=== PATIENT | male | born 1945 | race Caucasian/White ===

== ENCOUNTER 2016-07-12 00:41 | Emergency (ER) | payer MEDICARE, BC ==
--- NOTE | 2016-07-12 00:52 | EDM.PDOC ---
ED HISTORY OF PRESENT ILLNESS - General Chief Complaint: Chest Pain Stated Complaint: L)sided chest pain Time Seen by Provider: 07/12/16 00:25 Source of Information: Reports: Patient History Limitations: Reports: No limitations - History of Present Illness INITIAL COMMENTS - FREE TEXT/NARRATIVE: History of present illness: [70-year-old male presenting with complaints of chest pain starting at approximately noon on 07/11, but preceded to go about his stay he indicated he had taken baby aspirin as well as some nitroglycerin has he had from before. Patient has had a stent placed in his coronary artery last August which is approximately 8-9 months ago as well as a gallbladder procedure in March of 2016.] Review of systems: As per history of present illness and below otherwise all systems reviewed and negative. Past medical history: As per history of present illness and as reviewed below otherwise noncontributory. Surgical history: As per history of present illness and as reviewed below otherwise noncontributory. Social history: No reported history of drug or alcohol abuse. Family history: As per history of present illness and as reviewed below otherwise noncontributory. Physical exam: HEENT: Atraumatic, normocephalic, pupils reactive, negative for conjunctival pallor or scleral icterus, mucous membranes moist, throat clear, neck supple, nontender, trachea midline. Lungs: Clear to auscultation, breath sounds equal bilaterally, chest nontender. Heart: S1S2, regular, negative for clicks, rubs, or JVD. Abdomen: Soft, nondistended, nontender. Negative for masses or hepatosplenomegaly. Negative for costovertebral tenderness. Pelvis: Stable nontender. Genitourinary: Deferred. Rectal: Deferred. Extremities: Atraumatic, negative for cords or calf pain. Neurovascular unremarkable. Neuro: Awake, alert, oriented. Cranial nerves II through XII unremarkable. Cerebellum unremarkable. Motor and sensory unremarkable throughout. Exam nonfocal. Patient very gassy and belching quite a bit indicates that he feels that the bubble in his stomach and now he states that it actually is painful only on deep inspiration and is reproducible with deep inspiration and that he perceives some measure of relief upon expressing gas via belching Diagnostics: [CMP, CBC, troponin, CK, LDH, EKG, chest x-ray] Therapeutics: [Patient had taken aspirin prior to arrival as well as nitroglycerin tablets, GI cocktail] Impression: [Atypical chest] Plan: [Followup with primary care provider] Definitive disposition and diagnosis as appropriate pending reevaluation and review of above. - Related Data Allergies/ADRs: Allergies Allergy/AdvReac Type Severity Reaction Status Date / Time hydrocodone bitartrate Allergy Cannot Verified 06/01/16 16:08 [From Vicodin] Remember Penicillins Allergy Cannot Verified 06/01/16 16:08 Remember sun Allergy Cannot Uncoded 06/01/16 16:08 Remember Home Meds: Home Meds Aspirin [Adult Low Dose Aspirin EC] 81 mg PO DAILY 06/21/15 [History] Gabapentin [Neurontin] 300 mg PO BID 06/21/15 [History] Garlic 1,000 mg PO BID 06/21/15 [History] Naproxen Sodium [Aleve] 220 mg PO BID PRN 06/21/15 [History] atorvaSTATin [Lipitor] 10 mg PO DAILY 10/13/15 [History] Lansoprazole [Prevacid] 15 mg PO BIDAC 07/12/16 [History] Metoprolol Tartrate [Metoprolol Tartrate] 25 mg PO BID 07/12/16 [History] Nitroglycerin 0.4 mg SL ASDIRECTED PRN 07/12/16 [History] Past Medical History HEENT History: Reports: Other (see below) Other HEENT History: corneal abrasion Cardiovascular History: Reports: High cholesterol, Hypertension, Stents Other Cardiovascular History: thought he had heartburn, saw cardiology, prescribed meds; still had heartburn, stress test done. Respiratory History: Reports: Other (see below) Other Respiratory History: has albuterol on med list; says he uses occasionally , not sure why Gastrointestinal History: Reports: GERD Musculoskeletal History: Reports: Back pain, chronic, Osteoarthritis Other Musculoskeletal History: has a history of chronic back pain Dermatologic History: Reports: Other (see below) Other Dermatologic History: states he is allergic to the sun; breaks out with sun exposure - Past Surgical History Other Cardiovascular Surgeries/Procedures: denies any cp since PTCA Stent, denies any palpitations since procedure; had some dizziness in shower for a few seconds recently; heart cath through wrist, healed; GI Surgical History: Reports: Cholecystectomy, Hernia, inguinal, Other (see below) Other GI Surgeries/Procedures: abdominal wall surgery. reflux Musculoskeletal Surgical History: Reports: Amputation Other Musculoskeletal Surgeries/Procedures:: right middle tip of finger amputated, no fingernail. right pointer finger crooked from same accident. Social & Family History - Tobacco Use Smoking Status *Q: Former Smoker Used Tobacco, but Quit: Yes Month Tobacco Last Used: 4 years ago - Caffeine Use Caffeine Use: Reports: Coffee - Recreational Drug Use Recreational Drug Use: No ED ROS GENERAL - Review of Systems Review Of Systems: See Below (See history of present illness) ED EXAM, GENERAL - Physical Exam Exam: See Below (See history of present illness) Course - Vital Signs Last Recorded V/S: Last Vital Signs Temp 36.8 C 07/12/16 01:26 Pulse 58 L 07/12/16 01:26 Resp 18 07/12/16 01:26 BP 129/73 07/12/16 01:26 Pulse Ox 96 07/12/16 01:26 - Orders/Labs/Meds Orders: Active Orders 24 hr Category Date Time Status EKG Documentation Completion [RC] STAT Care 07/12/16 00:52 Active Chest 2V [CR] Stat Exams 07/12/16 00:52 Taken Labs: Laboratory Tests 07/12/16 07/12/16 07/12/16 Range/Units 01:13 01:13 01:13 WBC 5.5 (5.0-10.0) 10^3/uL RBC 4.43 L (4.50-6.00) 10^6/uL Hgb 13.9 L (14.0-18.0) g/dL Hct 41.9 (40.0-54.0) % MCV 94.6 H (82.0-94.0) fL MCH 31.4 (27.0-32.0) pg MCHC 33.2 (33.0-38.0) g/dL RDW Coeff of [place] 12.8 (11.0-15.0) % Plt Count 143 L (150-400) 10^3/uL Neut % (Auto) 69.6 (35-85) % Lymph % (Auto) 21.0 (10-55) % Emm[place] % (Auto) 8.3 (0-16) % Eos % (Auto) 0.9 (0-5) % Baso % (Auto) 0.2 (0-3) % Neut # 3.85 (1.80-7.00) 10^3/uL Lymph # 1.16 (1.00-4.80) 10^3/uL Emmet # 0.46 (0.00-0.80) 10^3/uL Eos # 0.05 (0.00-0.45) 10^3/uL Baso # 0.01 10^3/uL PT 11.4 (9.7-12.3) SEC INR 1.05 (0.92-1.18) Sodium 139 (136-145) mEq/L Potassium 3.8 (3.5-5.0) mEq/L Chloride 104 (98-106) mEq/L Carbon Dioxide 27 (21-32) mmol/L BUN 22 H (7-18) mg/dL Creatinine 1.0 (0.7-1.3) mg/dL Est Cr Clr Drug Dosing 71.99 mL/min Estimated GFR (MDRD) > 60 (>=60) mL/min Glucose 112 H (75-99) mg/dL Calcium 8.4 (8.4-10.1) mg/dL Total Bilirubin 0.5 (0.0-1.0) mg/dL AST 14 L (15-37) U/L ALT 21 (12-78) U/L Alkaline Phosphatase 74 (46-116) U/L Lactate Dehydrogenase 173 (100-190) U/L Creatine Kinase 135 (35-232) U/L Troponin I < 0.017 (0.00-0.06) ng/mL Total Protein 7.3 (6.4-8.2) g/dL Albumin 3.7 (3.4-5.0) g/dL Meds: Medications Discontinued Medications Generic Name Dose Route Start Last Admin Trade Name Freq PRN Reason Stop Dose Admin Al Hydroxide/Mg Hydroxide 30 0 ml 07/12/16 01:44 07/12/16 01:47 ml/ Lidocaine HCl 15 ml PO 07/12/16 01:45 45 ml ONETIME ONE Administration Departure - Departure Time of Disposition: 02:03 Disposition: Home, Self-Care 01 Condition: good Clinical Impression: Atypical chest pain Instructions: Nonspecific Chest Pain, [id number] Forms: ED Department Discharge Additional Instructions: The following information is given to patients seen in the emergency department who are being discharged to home. This information is to outline your options for follow-up care. We provide all patients seen in our emergency department with a follow-up referral. The need for follow-up, as well as the timing and circumstances, are variable depending upon the specifics of your emergency department visit. If you don't have a primary care physician on staff, we will provide you with a referral. We always advise you to contact your personal physician following an emergency department visit to inform them of the circumstance of the visit and for follow-up with them and/or the need for any referrals to a consulting specialist. The emergency department will also refer you to a specialist when appropriate. This referral assures that you have the opportunity for follow-up care with a specialist. All of these measure are taken in an effort to provide you with optimal care, which includes your follow-up. Under all circumstances we always encourage you to contact your private physician who remains a resource for coordinating your care. When calling for follow-up care, please make the office aware that this follow-up is from your recent emergency room visit. If for any reason you are refused follow-up, please contact the [facility] Emergency Department at and asked to speak to the emergency department charge nurse. Followup with your primary care provider one to 2 days Followup with the GI doctor to discuss the continued gastrointestinal complaints that you've been having Return to ED as needed as discussed - My Orders Last 24 Hours: My Active Orders 07/12/16 00:52 EKG Documentation Completion [RC] STAT Chest 2V [CR] Stat - Assessment/Plan Last 24 Hours: My Active Orders 07/12/16 00:52 EKG Documentation Completion [RC] STAT Chest 2V [CR] Stat
[2016-07-12 01:26] VITALS: BP 129/73
[2016-07-12 01:29] LABS: CHLORIDE,CL 104 mEq/L (98-106); SODIUM,NA 139 mEq/L (136-145)
[2016-07-12] MEDS ORDERED: Alum Hydrox/Mag Hydrox/Simeth 30 ML, Lidocaine 2% 15 ML PO ONE ×2 (01:44)
== END 2016-07-12 02:15 | disposition home or self-care (01) ==
LOC: CC.ED 00:41
DX: R07.89 Other chest pain (principal); Z88.0 Allergy status to penicillin; Z79.899 Other long term (current) drug therapy; Z87.891 Personal history of nicotine dependence
CPT/HCPCS: 36415; 71020; 80053; 82550; 83615; 84484; 85025; 85610; 93005; 99285; A9270; 93010

== ENCOUNTER 2017-05-09 10:24 | Observation (INO) | payer MEDICARE, BC ==
[2017-05-09] MEDS ORDERED: Albuterol/Ipratropium 3.0-0.5 MG/3 ML Neb Soln NEB ONE (10:55)
[2017-05-09 10:59] LABS: CHLORIDE,CL 99 mEq/L (98-106); SODIUM,NA 136 mEq/L (136-145)
[2017-05-09] MEDS ORDERED: Albuterol/Ipratropium 3.0-0.5 MG/3 ML Neb Soln INH ONE (11:30)
[2017-05-09] MEDS ORDERED: Sodium Chloride 0.9% 10 ML Syringe FLUSH PRN (14:47)
[2017-05-09] MEDS ORDERED: Temazepam 15 MG Cap PO PRN (14:47)
[2017-05-09] MEDS ORDERED: Docusate Sodium 100 MG Cap PO PRN (14:47)
[2017-05-09] MEDS ORDERED: Acetaminophen 325 MG Tab PO PRN (14:47)
[2017-05-09] MEDS ORDERED: Nitroglycerin 0.4 MG Tab.SL SL PRN (14:50)
[2017-05-09] MEDS ORDERED: methylPREDNISolone Sodium Succinate 125 MG/2 ML SDV IVPUSH SCH (15:00)
[2017-05-09] MEDS ORDERED: methylPREDNISolone Sodium Succinate 125 MG/2 ML SDV IVPUSH ONE (15:00)
[2017-05-09] MEDS ORDERED: Codeine/Promethazine 10-6.25 MG/5 ML Syrup 5 ML UD Cup PO PRN ×2 (15:04→15:20)
[2017-05-09] MEDS: Enoxaparin 30 MG/0.3 ML Syringe SUBCUT SCH (15:29)
[2017-05-09] MEDS: cefTRIAXone 1 GM Vial IVPUSH SCH (15:29)
[2017-05-09] MEDS: Albuterol/Ipratropium 3.0-0.5 MG/3 ML Neb Soln NEB SCH ×2 (15:31→19:43)
[2017-05-09] MEDS: Pantoprazole 40 MG Tab.CR PO SCH (17:10)
[2017-05-09] MEDS: ATORVASTATIN 10 MG PO SCH (19:37)
[2017-05-09] MEDS: Metoprolol Tartrate 25 MG Tab ** OWN MED PO SCH (19:37)
[2017-05-09] MEDS: POTASSIUM GLUCONATE 99 MG PO SCH (19:38)
[2017-05-09] MEDS: Gabapentin 300 MG Cap ** OWN MED PO SCH (19:38)
[2017-05-09] MEDS: [UNRECOGNIZED DRUG - OTHER] PO PRN (19:39)
[2017-05-09] MEDS ORDERED: Gabapentin 300 MG Cap PO SCH (20:00)
[2017-05-09] MEDS ORDERED: atorvaSTATin 10 MG Tab PO SCH (20:00)
[2017-05-10] MEDS: Albuterol/Ipratropium 3.0-0.5 MG/3 ML Neb Soln NEB SCH ×4 (07:53→19:23)
[2017-05-10] MEDS: methylPREDNISolone Sodium Succinate 125 MG/2 ML SDV IVPUSH SCH ×2 (07:54→19:27)
[2017-05-10] MEDS: Pantoprazole 40 MG Tab.CR PO SCH ×2 (07:54→16:21)
[2017-05-10] MEDS: Metoprolol Tartrate 25 MG Tab ** OWN MED PO SCH ×2 (07:55→19:21)
[2017-05-10] MEDS: Gabapentin 300 MG Cap ** OWN MED PO SCH ×3 (07:56→19:22)
[2017-05-10] MEDS: Aspirin 81 MG Tab.EC PO SCH (07:56)
[2017-05-10 07:57] LABS: CHLORIDE,CL 102 mEq/L (98-106); SODIUM,NA 139 mEq/L (136-145)
[2017-05-10] MEDS: [UNRECOGNIZED DRUG - OTHER] PO PRN (07:57)
[2017-05-10] MEDS ORDERED: atorvaSTATin 10 MG Tab PO SCH (08:00)
[2017-05-10] MEDS: Enoxaparin 30 MG/0.3 ML Syringe SUBCUT SCH (16:14)
[2017-05-10] MEDS: cefTRIAXone 1 GM Vial IVPUSH SCH (16:14)
[2017-05-10] MEDS: ATORVASTATIN 10 MG PO SCH (19:21)
[2017-05-10] MEDS: POTASSIUM GLUCONATE 99 MG PO SCH (19:22)
--- NOTE | 2017-05-10 19:40 | PCM.PN ---
- General Info Date of Service: 05/10/17 Admission Dx/Problem (Free Text): Bronchitis Functional Status: Reports: Pain Controlled, Tolerating Diet, Ambulating - Review of Systems General: Denies: Fever, Weakness, Fatigue HEENT: Reports: Sinus Congestion, Rhinitis. Denies: Sore Throat Pulmonary: Reports: Shortness of Breath, Cough, Wheezing. Denies: Sputum Cardiovascular: Denies: Chest Pain, Lightheadedness Gastrointestinal: Denies: Abdominal Pain, Nausea, Vomiting Genitourinary: Reports: No Symptoms Musculoskeletal: Reports: No Symptoms Skin: Reports: No Symptoms Neurological: Reports: No Symptoms, Difficulty Walking - Patient Data Vitals - Most Recent: Last Vital Signs Temp 97.9 F 05/10/17 16:00 Pulse 65 05/10/17 19:21 Resp 18 05/10/17 16:00 BP 139/67 05/10/17 19:21 Pulse Ox 98 05/10/17 16:00 Weight - Most Recent: 296 lb 8.348 oz Lab Results Last 24 Hours: Laboratory Results - last 24 hr 05/10/17 05/10/17 Range/Units 07:00 07:00 WBC 4.4 L (5.0-10.0) 10^3/uL RBC 4.45 L (4.50-6.00) 10^6/uL Hgb 14.0 (14.0-18.0) g/dL Hct 41.7 (40.0-54.0) % MCV 93.7 (82.0-94.0) fL MCH 31.5 (27.0-32.0) pg MCHC 33.6 (33.0-38.0) g/dL RDW Coeff of Lynn 12.5 (11.0-15.0) % Plt Count 157 (150-400) 10^3/uL Neut % (Auto) 66.3 (35-85) % Lymph % (Auto) 23.9 (10-55) % [place] % (Auto) 9.8 (0-16) % Eos % (Auto) 0 (0-5) % Baso % (Auto) 0 (0-3) % Neut # (Auto) 2.92 (1.80-7.00) 10^3/uL Lymph # (Auto) 1.05 (1.00-4.80) 10^3/uL [place] # (Auto) 0.43 (0.00-0.80) 10^3/uL Eos # (Auto) 0.00 (0.00-0.45) 10^3/uL Baso # (Auto) 0.00 10^3/uL Sodium 139 (136-145) mEq/L Potassium 4.7 (3.5-5.0) mEq/L Chloride 102 (98-106) mEq/L Carbon Dioxide 28 (21-32) mmol/L BUN 13 (7-18) mg/dL Creatinine 1.1 (0.7-1.3) mg/dL Est Cr Clr Drug Dosing 64.52 mL/min Estimated GFR (MDRD) > 60 (>=60) mL/min Glucose 122 H (75-99) mg/dL Calcium 8.8 (8.4-10.1) mg/dL C-Reactive Protein 0.2 (0.2-0.8) mg/dL Med Orders - Current: Current Medications Acetaminophen (Tylenol) 650 mg PO Q4H PRN PRN Reason: Pain (Mild 1-3)/fever Albuterol/Ipratropium (Duoneb 3.0-0.5 Mg/3 Ml) 3 ml NEB QIDRT [facility] Last Admin: 05/10/17 19:23 Dose: 3 ml Aspirin (Halfprin) 81 mg PO DAILY [facility] Last Admin: 05/10/17 07:56 Dose: 81 mg Atorvastatin Calcium (Lipitor) 10 mg PO BEDTIME [facility] Last Admin: 05/10/17 19:21 Dose: 10 mg Ceftriaxone Sodium (Rocephin) 1 gm IVPUSH Q24H [facility] Last Admin: 05/10/17 16:14 Dose: 1 gm Docusate Sodium (Colace) 100 mg PO BID PRN PRN Reason: Constipation Enoxaparin Sodium (Lovenox) 30 mg SUBCUT Q24H [facility] Last Admin: 05/10/17 16:14 Dose: 30 mg Gabapentin (Neurontin) 300 mg PO TID [facility] Last Admin: 05/10/17 19:22 Dose: 300 mg Methylprednisolone Sodium Succinate (Solu-Medrol) 62.5 mg IVPUSH Q12H [facility] Last Admin: 05/10/17 19:27 Dose: 62.5 mg Metoprolol Tartrate (Lopressor) 25 mg PO BID [facility] Last Admin: 05/10/17 19:21 Dose: 25 mg Nitroglycerin (Nitrostat) 0.4 mg SL ASDIRECTED PRN PRN Reason: Chest Pain Mg Trisilicate/Alh/Nahco3/Aa [Gaviscon 80-14.2 Mg] 1 Tab Own Med 1 tab PO TID PRN PRN Reason: Dyspepsia Last Admin: 05/10/17 07:57 Dose: 1 tab Potassium Gluconate (99mg Own Med ) 99 mg PO BEDTIME [facility] Last Admin: 05/10/17 19:22 Dose: 99 mg Pantoprazole Sodium (Protonix) 40 mg PO BIDAC [facility] Last Admin: 05/10/17 16:21 Dose: 40 mg Promethazine HCl/Codeine (Phenergan With Codeine) 5 - 10 ml PO Q4H PRN PRN Reason: Cough Last Admin: 05/09/17 21:08 Dose: 10 ml Sodium Chloride (Saline Flush) 10 ml FLUSH ASDIRECTED PRN PRN Reason: Keep Vein Open Temazepam (Restoril) 15 mg PO BEDTIME PRN PRN Reason: Sleep Discontinued Medications Albuterol/Ipratropium (Duoneb 3.0-0.5 Mg/3 Ml) 3 ml INH ONETIME ONE Stop: 05/09/17 11:31 Last Admin: 05/09/17 11:27 Dose: 3 ml Albuterol/Ipratropium (Duoneb 3.0-0.5 Mg/3 Ml) 3 ml NEB ONETIME ONE Stop: 05/09/17 10:56 Last Admin: 05/09/17 11:14 Dose: Not Given Atorvastatin Calcium (Lipitor) 25 mg PO DAILY [facility] Atorvastatin Calcium (Lipitor) 25 mg PO BEDTIME [facility] Gabapentin (Neurontin) 300 mg PO BID [facility] Methylprednisolone Sodium Succinate (Solu-Medrol) 62.5 mg IVPUSH Q12H [facility] Methylprednisolone Sodium Succinate (Solu-Medrol) 62.5 mg IVPUSH NOW ONE Stop: 05/09/17 15:01 Last Admin: 05/09/17 15:29 Dose: 62.5 mg Promethazine HCl/Codeine (Phenergan With Codeine) 5 ml PO Q4H PRN PRN Reason: Cough - Exam General: Alert, Oriented HEENT: Mucous Membr. Moist/[place] Neck: Supple Lungs: Decreased Breath Sounds, Wheezing (fine) Cardiovascular: Regular Rate, Regular Rhythm GI/Abdominal Exam: Normal Bowel Sounds, Soft, Non-Tender Back Exam: Normal Inspection Extremities: Normal Inspection, No Pedal Edema Skin: Warm, Dry Neurological: No New Focal Deficit - Problem List & Annotations (1) Bronchitis SNOMED Code(s): 48393906 Code(s): J40 - BRONCHITIS, NOT SPECIFIED ACUTE OR CHRONIC Status: Acute Priority: High Current Visit: Yes - Problem List Review Problem List Initiated/Reviewed/Updated: Yes - Assessment Assessment:: Bronchitis - Plan Plan:: Patient doing well today. States has much better air movement, less shortness of breath. Lung sounds diminished, fine wheezing noted. Admits to frequent cough, nonproductive. Afebrile. Labs show WBC 4.4, CRP 0.2. Continue IV antibiotics, nebs, steroids. Encourage ambulation. Probable discharge home tomorrow.
[2017-05-11] MEDS: Pantoprazole 40 MG Tab.CR PO SCH (06:33)
[2017-05-11] MEDS: Gabapentin 300 MG Cap ** OWN MED PO SCH (08:23)
[2017-05-11 08:24] VITALS: BP 131/65
[2017-05-11] MEDS: Metoprolol Tartrate 25 MG Tab ** OWN MED PO SCH (08:24)
[2017-05-11] MEDS: Aspirin 81 MG Tab.EC PO SCH (08:26)
[2017-05-11] MEDS: Albuterol/Ipratropium 3.0-0.5 MG/3 ML Neb Soln NEB SCH (08:32)
[2017-05-11] MEDS: methylPREDNISolone Sodium Succinate 125 MG/2 ML SDV IVPUSH SCH (08:32)
--- NOTE | 2017-05-11 14:40 | PCM.DCSUM1 ---
Discharge Summary - Hospital Course Free Text/Narrative:: Patient admitted by Deepak Perea by bronchitis. Patient had previously been treated with antibiotics and steroids but felt his symptoms had progressed. On presentation, patient was short of breath and wheezy. [place] very weak. Admitted for IV antibiotics and steroids, nebulizer treatments. Initial labs on admit show low WBC, negative CRP. Chest xray clear. - Discharge Data Discharge Date: 05/11/17 Discharge Disposition: Home, Self-Care 01 Condition: Good - Discharge Diagnosis/Problem(s) (1) Bronchitis SNOMED Code(s): 94812467 ICD Code: J40 - BRONCHITIS, NOT SPECIFIED ACUTE OR CHRONIC Status: Acute Priority: High - Patient Summary/Data Complications: none Hospital Course: Patient has had good response to IV steroids and nebulizers. Is up and ambulating without difficulty, mild shortness of breath with this. He is afebrile. Lung sounds are clear today with good air exchange. Labs have remained stable. Appetite has been good. Return home on Doxycycline and nebulizer treatments as well as prednisone for the next 5 days. - Patient Instructions Diet: Usual Diet as Tolerated Activity: As Tolerated - Discharge Plan Prescriptions/Med Rec: Doxycycline [Vibramycin] 100 mg PO Q12HR #14 tablet Albuterol/Ipratropium [DuoNeb 3.0-0.5 MG/3 ML] [address] [facility] QIDRT #28 neb predniSONE [Prednisone] 20 mg PO DAILY #5 tablet Home Medications: Home Meds Aspirin [Adult Low Dose Aspirin EC] 81 mg PO DAILY 06/21/15 [History] Gabapentin [Neurontin] 300 mg PO TID 06/21/15 [History] Garlic 1,000 mg PO BID 06/21/15 [History] Naproxen Sodium [Aleve] 220 mg PO BID PRN 06/21/15 [History] atorvaSTATin [Lipitor] 10 mg PO BEDTIME 10/13/15 [History] Lansoprazole [Prevacid] 15 mg PO BIDAC 07/12/16 [History] Metoprolol Tartrate 25 mg PO BID 07/12/16 [History] Nitroglycerin 0.4 mg SL ASDIRECTED PRN 07/12/16 [History] Mg Trisilicate/AlH/NahCO3/AA [Gaviscon 80-14.2 MG] 1 tab PO TID PRN 05/09/17 [ History] Potassium 99 mg PO BEDTIME 05/09/17 [History] Promethazine HCl/Codeine [Prometh-Codein 6.25-10 mg/5 ml] 5 ml PO Q4H PRN [History] Albuterol/Ipratropium [DuoNeb 3.0-0.5 MG/3 ML] 3 ml NEB QIDRT #28 neb 05/11/17 [ Rx] Doxycycline [Vibramycin] 100 mg PO Q12HR #14 tablet 05/11/17 [Rx] predniSONE [Prednisone] 20 mg PO DAILY #5 tablet 05/11/17 [Rx] Patient Handouts: Acute Bronchitis Referrals: Alex Logan MD [Primary Care Provider] - (See Dr. Logan next week in clinic) - Discharge Summary/Plan Comment DC Time >30 min.: No Discharge Summary/Plan Comment: Discharge home on Doxycycline, prednisone and nebs. Follow up with Dr. Logan next week for hospital recheck. - General Info Date of Service: 05/11/17 Admission Dx/Problem (Free Text: Bronchitis Functional Status: Reports: Pain Controlled, Tolerating Diet, Ambulating - Review of Systems General: Denies: Fever, Weakness, Fatigue HEENT: Reports: Sinus Congestion, Rhinitis Pulmonary: Reports: Cough, Sputum. Denies: Shortness of Breath, Wheezing Cardiovascular: Reports: No Symptoms Gastrointestinal: Reports: No Symptoms Genitourinary: Reports: No Symptoms Musculoskeletal: Reports: No Symptoms - Patient Data Vitals - Most Recent: Last Vital Signs Temp 98.7 F 05/11/17 08:00 Pulse 63 05/11/17 08:24 Resp 19 05/11/17 08:00 BP 131/65 05/11/17 08:24 Pulse Ox 94 L 05/11/17 08:00 Weight - Most Recent: 296 lb 8.348 oz Med Orders - Current: Current Medications Discontinued Medications Acetaminophen (Tylenol) 650 mg PO Q4H PRN PRN Reason: Pain (Mild 1-3)/fever Albuterol/Ipratropium (Duoneb 3.0-0.5 Mg/3 Ml) 3 ml INH ONETIME ONE Stop: 05/09/17 11:31 Last Admin: 05/09/17 11:27 Dose: 3 ml Albuterol/Ipratropium (Duoneb 3.0-0.5 Mg/3 Ml) 3 ml NEB ONETIME ONE Stop: 05/09/17 10:56 Last Admin: 05/09/17 11:14 Dose: Not Given Albuterol/Ipratropium (Duoneb 3.0-0.5 Mg/3 Ml) 3 ml NEB QIDRT [facility] Last Admin: 05/11/17 08:32 Dose: 3 ml Aspirin (Halfprin) 81 mg PO DAILY [facility] Last Admin: 05/11/17 08:26 Dose: 81 mg Atorvastatin Calcium (Lipitor) 25 mg PO DAILY [facility] Atorvastatin Calcium (Lipitor) 25 mg PO BEDTIME [facility] Atorvastatin Calcium (Lipitor) 10 mg PO BEDTIME [facility] Last Admin: 05/10/17 19:21 Dose: 10 mg Ceftriaxone Sodium (Rocephin) 1 gm IVPUSH Q24H [facility] Last Admin: 05/10/17 16:14 Dose: 1 gm Docusate Sodium (Colace) 100 mg PO BID PRN PRN Reason: Constipation Enoxaparin Sodium (Lovenox) 30 mg SUBCUT Q24H [facility] Last Admin: 05/10/17 16:14 Dose: 30 mg Gabapentin (Neurontin) 300 mg PO BID [facility] Gabapentin (Neurontin) 300 mg PO TID [facility] Last Admin: 05/11/17 08:23 Dose: 300 mg Methylprednisolone Sodium Succinate (Solu-Medrol) 62.5 mg IVPUSH Q12H [facility] Methylprednisolone Sodium Succinate (Solu-Medrol) 62.5 mg IVPUSH NOW ONE Stop: 05/09/17 15:01 Last Admin: 05/09/17 15:29 Dose: 62.5 mg Methylprednisolone Sodium Succinate (Solu-Medrol) 62.5 mg IVPUSH Q12H [facility] Last Admin: 05/11/17 08:32 Dose: 62.5 mg Metoprolol Tartrate (Lopressor) 25 mg PO BID [facility] Last Admin: 05/11/17 08:24 Dose: 25 mg Nitroglycerin (Nitrostat) 0.4 mg SL ASDIRECTED PRN PRN Reason: Chest Pain Mg Trisilicate/Alh/Nahco3/Aa [Gaviscon 80-14.2 Mg] 1 Tab Own Med 1 tab PO TID PRN PRN Reason: Dyspepsia Last Admin: 05/10/17 07:57 Dose: 1 tab Potassium Gluconate (99mg Own Med ) 99 mg PO BEDTIME [facility] Last Admin: 05/10/17 19:22 Dose: 99 mg Pantoprazole Sodium (Protonix) 40 mg PO BIDAC [facility] Last Admin: 05/11/17 06:33 Dose: 40 mg Promethazine HCl/Codeine (Phenergan With Codeine) 5 ml PO Q4H PRN PRN Reason: Cough Promethazine HCl/Codeine (Phenergan With Codeine) 5 - 10 ml PO Q4H PRN PRN Reason: Cough Last Admin: 05/09/17 21:08 Dose: 10 ml Sodium Chloride (Saline Flush) 10 ml FLUSH ASDIRECTED PRN PRN Reason: Keep Vein Open Temazepam (Restoril) 15 mg PO BEDTIME PRN PRN Reason: Sleep - Exam General: Reports: Alert, Oriented HEENT: Reports: Mucous Membr. Moist/[place] Neck: Reports: Supple Lungs: Reports: Decreased Breath Sounds Cardiovascular: Reports: Regular Rate, Regular Rhythm GI/Abdominal Exam: Normal Bowel Sounds, Soft, Non-Tender Skin: Reports: Warm, Dry Neurological: Reports: No New Focal Deficit *Q Meaningful Use (DIS) - VTE *Q VTE Criteria *Q: - Stroke *Q Stroke Criteria *Q: - AMI *Q AMI Criteria *Q:
== END 2017-05-11 10:30 | disposition home or self-care (01) ==
LOC: CC.FCMC 10:24 → CC.MS 10:24 → CC.ACU 12:05 → UNDOADMOB 12:11 → CC.MS 12:11
PROVIDERS: ADMIT Physician Assistant Medical; ATTEND Family Medicine
DX: J40 Bronchitis, not specified as acute or chronic (principal); I25.10 Atherosclerotic heart disease of native coronary artery without angina pectoris; Z79.82 Long term (current) use of aspirin; Z79.2 Long term (current) use of antibiotics; Z79.899 Other long term (current) drug therapy; Z88.0 Allergy status to penicillin; Z88.8 Allergy status to other drugs, medicaments and biological substances; Z87.891 Personal history of nicotine dependence
CPT/HCPCS: 36415; 71046; 80048; 80053; 85025; 86140; 87804; 94060; 94640; 96372; 96374; 96375; 96376; A9270; G0378; J0696; J1650; J2930; 99217; 99220; 99225

== ENCOUNTER 2017-07-11 19:03 | Emergency (ER) | payer MEDICARE, BC ==
[2017-07-11] MEDS ORDERED: Aspirin 81 MG Tab.Chew PO ONE (19:11)
[2017-07-11 19:23] VITALS: BP 139/77
[2017-07-11] MEDS ORDERED: Alum Hydrox/Mag Hydrox/Simeth 30 ML, Lidocaine 2% 15 ML PO ONE ×2 (19:28)
--- NOTE | 2017-07-11 19:55 | EDM.PDOC ---
ED HPI GENERAL MEDICAL PROBLEM - General Chief Complaint: Chest Pain Stated Complaint: chest pain Time Seen by Provider: 07/11/17 19:30 Source of Information: Reports: Patient History Limitations: Reports: No Limitations - History of Present Illness INITIAL COMMENTS - FREE TEXT/NARRATIVE: States that he has been having left sided chest pain with some midepigastric discomfort for about a week. Has been having pain and numbness down the left arm and has been seeing PT for this. This started after he had been shoveling snow. He has had some relief from PT. He did see Deepak yesterday for the same discomfort and was started on Nexium and took a pill yesterday and again this morning. He was concerned as the pain has not changed at all since he took it. The pain doesn't change with activity. Some change noted to the left upper chest as he states that it gets worse when he lifts his arm up and over his head it does ache more. He denies that the pain is any different since he saw Deepak yesterday. He denies any SOB, diaphoresis, or nausea with the pain. He did normal activities today without any change in the pain. No cough with the discomfort. States he had stents put in his heart August 2015. Last saw cardiology about . Has not had a stress test since his stents were placed. Onset: Gradual Duration: Week(s): (1) Location: Reports: Chest, Upper Extremity, Left Quality: Reports: Ache, Dull Improves with: Reports: None Associated Symptoms: Reports: No Other Symptoms. Denies: Diaphoresis, Nausea/ Vomiting, Shortness of Breath Chest Pain Score (Numeric/FACES): 5 - Related Data Allergies Allergy/AdvReac Type Severity Reaction Status Date / Time hydrocodone bitartrate Allergy Cannot Verified 07/11/17 19:14 [From Vicodin] Remember Penicillins Allergy Cannot Verified 07/11/17 19:14 Remember sun Allergy Cannot Uncoded 07/11/17 19:14 Remember Home Meds: Home Meds Aspirin [Adult Low Dose Aspirin EC] 81 mg PO DAILY 06/21/15 [History] Gabapentin [Neurontin] 300 mg PO BID 06/21/15 [History] Garlic 1,000 mg PO DAILY 06/21/15 [History] Naproxen Sodium [Aleve] 220 mg PO BID PRN 02/22/16 [History] atorvaSTATin [Lipitor] 10 mg PO BEDTIME 10/13/15 [History] Metoprolol Tartrate 25 mg PO BID 07/12/16 [History] Nitroglycerin 0.4 mg SL ASDIRECTED PRN 07/12/16 [History] Mg Trisilicate/AlH/NahCO3/AA [Gaviscon 80-14.2 MG] 2 tab PO BID 05/09/17 [ History] Albuterol/Ipratropium [DuoNeb 3.0-0.5 MG/3 ML] 3 ml NEB QIDRT PRN 07/11/17 [ History] Esomeprazole [NexIUM] 20 mg PO DAILY 07/11/17 [History] Past Medical History HEENT History: Reports: Hard of Hearing Other HEENT History: corneal abrasion Cardiovascular History: Reports: High Cholesterol, Hypertension, Stents Other Cardiovascular History: thought he had heartburn, saw cardiology, prescribed meds; still had heartburn, stress test done. Respiratory History: Reports: Other (See Below) Other Respiratory History: has albuterol on med list; says he uses occasionally , not sure why Gastrointestinal History: Reports: GERD Musculoskeletal History: Reports: Back Pain, Chronic, Osteoarthritis Other Musculoskeletal History: has a history of chronic back pain Dermatologic History: Reports: Other (See Below) Other Dermatologic History: states he is allergic to the sun; breaks out with sun exposure - Past Surgical History GI Surgical History: Reports: Cholecystectomy, Hernia, Inguinal Social & Family History - Family History Family Medical History: Noncontributory - Tobacco Use Smoking Status *Q: Never Smoker Used Tobacco, but Quit: Yes Month/Year Tobacco Last Used: 4 years ago Second Hand Smoke Exposure: Yes - Caffeine Use Caffeine Use: Reports: Coffee, Tea - Recreational Drug Use Recreational Drug Use: No ED ROS GENERAL - Review of Systems Review Of Systems: See Below Constitutional: Reports: No Symptoms HEENT: Reports: No Symptoms Respiratory: Denies: Shortness of Breath, Cough Cardiovascular: Reports: Chest Pain. Denies: Edema GI/Abdominal: Reports: Other (see HPI) : Reports: No Symptoms Musculoskeletal: Reports: Other (see HPI) Skin: Reports: No Symptoms ED EXAM, GENERAL - Physical Exam Exam: See Below Exam Limited By: No Limitations General Appearance: Alert, WD/WN, Mild Distress Ears: Normal External Exam, Normal Canal, Normal TMs Nose: Normal Inspection Throat/Mouth: Normal Inspection, Normal Oropharynx, No Airway Compromise Head: Atraumatic, Normocephalic Neck: Normal Inspection. No: Carotid Bruit Respiratory/Chest: No Respiratory Distress, Lungs Clear, Normal Breath Sounds Cardiovascular: Normal Peripheral Pulses, Regular Rate, Rhythm, No Edema, No Murmur, Other (some chest wall tender that will change to the upper left chest. No bruising noted, Pain will increase when he lifts his left arm up above his head.) GI/Abdominal: Normal Bowel Sounds, Soft, Tender (in the midepigastric area with palpation.) Back Exam: Normal Inspection Extremities: Normal Range of Motion, Normal Capillary Refill Neurological: Alert, Oriented Skin Exam: Warm, Dry, Intact Course - Vital Signs Last Recorded V/S: Last Vital Signs Temp 98.6 F 07/11/17 19:04 Pulse 76 07/11/17 19:04 Resp 20 07/11/17 19:04 BP 139/77 07/11/17 19:04 Pulse Ox 96 07/11/17 19:04 - Orders/Labs/Meds Orders: Active Orders 24 hr Category Date Time Status EKG Documentation Completion [RC] STAT Care 07/11/17 19:04 Active Chest 2V [CR] Stat Exams 07/11/17 19:10 Taken Labs: Laboratory Tests 07/11/17 07/11/17 07/11/17 Range/Units 17:25 17:25 19:25 WBC 5.2 (5.0-10.0) 10^3/uL RBC 4.59 (4.50-6.00) 10^6/uL Hgb 14.7 (14.0-18.0) g/dL Hct 44.3 (40.0-54.0) % MCV 96.5 H (82.0-94.0) fL MCH 32.0 (27.0-32.0) pg MCHC 33.2 (33.0-38.0) g/dL RDW Coeff of Lynn 13.3 (11.0-15.0) % Plt Count 147 L (150-400) 10^3/uL Neut % (Auto) 69.9 (35-85) % Lymph % (Auto) 22.3 (10-55) % [place] % (Auto) 7.0 (0-16) % Eos % (Auto) 0.6 (0-5) % Baso % (Auto) 0.2 (0-3) % Neut # (Auto) 3.61 (1.80-7.00) 10^3/uL Lymph # (Auto) 1.15 (1.00-4.80) 10^3/uL [place] # (Auto) 0.36 (0.00-0.80) 10^3/uL Eos # (Auto) 0.03 (0.00-0.45) 10^3/uL Baso # (Auto) 0.01 10^3/uL PT 10.7 (9.7-12.3) SEC INR 1.03 (0.92-1.18) APTT 26.1 (24.5-30.9) SEC Sodium 140 (136-145) mEq/L Potassium 3.7 D (3.5-5.0) mEq/L Chloride 103 (98-106) mEq/L Carbon Dioxide 27 (21-32) mmol/L BUN 22 H D (7-18) mg/dL Creatinine 1.1 (0.7-1.3) mg/dL Est Cr Clr Drug Dosing 124.28 mL/min Estimated GFR (MDRD) > 60 (>=60) mL/min Glucose 170 H D (75-99) mg/dL Calcium 8.4 (8.4-10.1) mg/dL Lactate Dehydrogenase 191 H (100-190) U/L Creatine Kinase 100 (35-232) U/L Troponin I < 0.017 (0.00-0.06) ng/mL Meds: Medications Discontinued Medications Generic Name Dose Route Start Last Admin Trade Name Anni PRN Reason Stop Dose Admin Aspirin 324 mg 07/11/17 19:11 07/11/17 19:16 Aspirin PO 07/11/17 19:12 324 mg ONETIME ONE Administration Al Hydroxide/Mg Hydroxide 30 0 ml 07/11/17 19:28 07/11/17 19:34 ml/ Lidocaine HCl 15 ml PO 07/11/17 19:29 45 ml ONETIME ONE Administration - Re-Assessments/Exams Free Text/Narrative Re-Assessment/Exam: 07/11/17 20:18 In to discuss normal lab results. Will be discharged to continue on the Nexium. Will schedule stress test as he is overdue for one. Departure - Departure Time of Disposition: 20:19 Disposition: Home, Self-Care 01 Condition: Good Clinical Impression: Atypical chest pain Instructions: Nonspecific Chest Pain, Chest Wall Pain, [id number] Forms: ED Department Discharge Additional Instructions: Someone will call you with a time for stress test that will be scheduled with Dr. Logan continue taking the Nexium daily Recheck if pain changes or other symptoms occur. - Problem List & Annotations (1) Atypical chest pain SNOMED Code(s): 688741378 Code(s): R07.89 - OTHER CHEST PAIN Status: Acute Priority: High Current Visit: Yes - Problem List Review Problem List Initiated/Reviewed/Updated: Yes - My Orders Last 24 Hours: My Active Orders 07/11/17 19:04 EKG Documentation Completion [RC] STAT 07/11/17 19:10 Chest 2V [CR] Stat - Assessment/Plan Last 24 Hours: My Active Orders 07/11/17 19:04 EKG Documentation Completion [RC] STAT 07/11/17 19:10 Chest 2V [CR] Stat
[2017-07-11 20:04] LABS: CHLORIDE,CL 103 mEq/L (98-106); SODIUM,NA 140 mEq/L (136-145)
== END 2017-07-11 20:27 | disposition home or self-care (01) ==
LOC: CC.ED 19:03
DX: R07.89 Other chest pain (principal); Z77.22 Contact with and (suspected) exposure to environmental tobacco smoke (acute) (chronic); I10 Essential (primary) hypertension; E78.00 Pure hypercholesterolemia, unspecified; K21.9 Gastro-esophageal reflux disease without esophagitis; Z79.82 Long term (current) use of aspirin; Z79.899 Other long term (current) drug therapy; Z88.0 Allergy status to penicillin; Z91.09 Other allergy status, other than to drugs and biological substances; Z88.5 Allergy status to narcotic agent
CPT/HCPCS: 36415; 71046; 80048; 82550; 83615; 84484; 85025; 85610; 85730; 93005; 99285; A9270-GY

== ENCOUNTER → 2017-08-03 | Day surgery (SDC) | payer MEDICARE, BC ==
[~2017-08-03] MED LIST: Lactated Ringers 1,000 ML IV SCH; Propofol 200 MG/20 ML SDV IV ONE
[2017-08-03 09:29] VITALS: BP 143/75
--- NOTE | 2017-08-03 15:38 | OR ---
DATE OF OPERATION: 08/03/2017 PREOPERATIVE DIAGNOSIS: 1. EPIGASTRIC PAIN. 2. GASTROESOPHAGEAL REFLUX DISEASE. POSTOPERATIVE DIAGNOSIS: 1. EPIGASTRIC PAIN. 2. GASTROESOPHAGEAL REFLUX DISEASE. SURGEON: Alex Logan MD PROCEDURE: EGD WITH BIOPSIES X4, JORGE. ANESTHESIA: TEST CONSULTANT with MAC. COMPLICATIONS: None. SPECIMEN: 1. Fundal biopsy x1. 2. Antral biopsy x3. 3. JORGE. FINDINGS: 1. Full-length EGD. 2. Diffuse active gastritis. 3. Small hiatal hernia with GERD. No esophagitis. RECOMMENDATIONS: Ongoing medical followup. INDICATIONS: The patient is having some epigastric pain, bloating, and some occasional reflux and we recommended EGD. DESCRIPTION OF PROCEDURE: The patient was prepped and draped, placed in the left lateral decubitus position. A lubricated Olympus gastroscope was inserted over a bit and advanced to cricopharyngeus area and easily intubated into the esophagus. The esophageal lining was benign in its entire course. The Z-line was crisp around 38 cm. There was a small hiatal hernia present with spontaneous GERD but no stricturing, ulceration, or Gallegos's changes. The stomach itself appeared benign. We were able to easily advance through the pylorus into the second portion of duodenum. This and the duodenal bulb were unremarkable. The scope was brought back into the stomach and retroflexed. The upper fundus and cardia were evaluated thoroughly. The upper fundus still showed some chronic active gastritis, biopsy was taken of that area. The worse of the gastritis was throughout the entire antrum without any focal ulceration or erosion. Three biopsies were taken along with a JORGE. Air was then suctioned, scope removed without complication. DION/PASTORA /[id number]
== END ==
LOC: CC.SDS 07:38
PROVIDERS: ATTEND Family Medicine
DX: K29.50 Unspecified chronic gastritis without bleeding (principal); B96.89 Other specified bacterial agents as the cause of diseases classified elsewhere; K44.9 Diaphragmatic hernia without obstruction or gangrene; K21.9 Gastro-esophageal reflux disease without esophagitis; I25.10 Atherosclerotic heart disease of native coronary artery without angina pectoris; Z88.0 Allergy status to penicillin; Z88.8 Allergy status to other drugs, medicaments and biological substances; Z91.09 Other allergy status, other than to drugs and biological substances; Z79.82 Long term (current) use of aspirin; Z79.899 Other long term (current) drug therapy; Z87.891 Personal history of nicotine dependence
CPT/HCPCS: 00731; 43239; 87081; 88305; 88342; J2704

== ENCOUNTER 2018-11-25 22:35 | Emergency (ER) | payer MEDICARE, BC ==
[2018-11-25 22:44] VITALS: BP 111/60; PULSE 73
--- NOTE | 2018-11-25 23:11 | EDM.PDOC ---
ED HPI GENERAL MEDICAL PROBLEM - General Chief Complaint: Upper Extremity Injury/Pain Stated Complaint: ARM/SHOULER PAIN Time Seen by Provider: 11/25/18 23:04 Source of Information: Reports: Patient History Limitations: Reports: No Limitations - History of Present Illness INITIAL COMMENTS - FREE TEXT/NARRATIVE: Conner is a 72 year old male who presents to the ED with c/o right arm pain. He reports he was showering just prior to ED presentation when he slipped in the shower and fell. He reports he attempted to catch himself on outstretched arm but was unable to and landed with arm about head and landed on abdomen. He reports pain with movement of his right arm. Denies arm pain at rest. Denies pain elsewhere. Denies hitting his head. No LOC. No other complaints. Onset: Today, Sudden Right Upper Arm Pain Score (Numeric/FACES): 10 - Related Data Allergies Allergy/AdvReac Type Severity Reaction Status Date / Time hydrocodone bitartrate Allergy Cannot Verified 08/03/17 07:52 [From Vicodin] Remember Penicillins Allergy Cannot Verified 08/03/17 07:52 Remember sun Allergy Cannot Uncoded 08/03/17 07:52 Remember Home Meds: Home Meds Aspirin [Adult Low Dose Aspirin EC] 81 mg PO DAILY 06/21/15 [History] Gabapentin [Neurontin] 300 mg PO BID 06/21/15 [History] Garlic 1,000 mg PO DAILY 06/21/15 [History] Naproxen Sodium [Aleve] 220 mg PO BID PRN 06/21/15 [History] atorvaSTATin [Lipitor] 10 mg PO BEDTIME 10/13/15 [History] Metoprolol Tartrate 25 mg PO BID 07/12/16 [History] Nitroglycerin 0.4 mg SL ASDIRECTED PRN 07/12/16 [History] Mg Trisilicate/AlH/NahCO3/AA [Gaviscon 80-14.2 MG] 2 tab PO BID 05/09/17 [ History] Past Medical History HEENT History: Reports: Hard of Hearing Other HEENT History: corneal abrasion Cardiovascular History: Reports: High Cholesterol, Hypertension, Stents Other Cardiovascular History: thought he had heartburn, saw cardiology, prescribed meds; still had heartburn, stress test done. Respiratory History: Reports: COPD Other Respiratory History: has albuterol on med list; says he uses occasionally , not sure why Gastrointestinal History: Reports: GERD Musculoskeletal History: Reports: Back Pain, Chronic, Osteoarthritis, Other ( See Below) Other Musculoskeletal History: has a history of chronic back pain and shoulder pain Dermatologic History: Reports: Other (See Below) Other Dermatologic History: states he is allergic to the sun; breaks out with sun exposure - Past Surgical History Cardiovascular Surgical History: Reports: Coronary Artery Stent Respiratory Surgical History: Reports: None GI Surgical History: Reports: Cholecystectomy, Hernia, Inguinal Musculoskeletal Surgical History: Reports: None Social & Family History - Family History Family Medical History: Noncontributory - Tobacco Use Smoking Status *Q: Never Smoker - Caffeine Use Caffeine Use: Reports: Coffee, Tea Review of Systems - Review of Systems Review Of Systems: ROS reveals no pertinent complaints other than HPI. ED EXAM, GENERAL - Physical Exam Exam: See Below Exam Limited By: No Limitations General Appearance: Alert, WD/WN, No Apparent Distress Peripheral Pulses: 2+: Radial (R) Extremities: Normal Inspection, Normal Range of Motion, Normal Capillary Refill , Arm Pain (right distal humeral pain). No: Joint Swelling Neurological: Alert, Oriented, CN II-XII Intact, Normal Cognition, Normal Gait, Normal Reflexes, No Motor/Sensory Deficits Psychiatric: Normal Affect, Normal Mood Skin Exam: Warm, Dry, Intact, Normal Color, No Rash Course - Vital Signs Last Recorded V/S: Last Vital Signs Temp 98.9 F 11/25/18 22:39 Pulse 73 11/25/18 22:39 Resp 16 11/25/18 22:39 BP 111/60 11/25/18 22:39 Pulse Ox 98 11/25/18 22:39 - Orders/Labs/Meds Orders: Active Orders 24 hr Category Date Time Status Humerus Rt [CR] Stat Exams 11/25/18 22:40 Taken - Re-Assessments/Exams Free Text/Narrative Re-Assessment/Exam: 11/25/18 23:11 Xray negative per my review. Discussed these findings with patient and daughter. Departure - Departure Time of Disposition: 23:11 Disposition: Home, Self-Care 01 Condition: Good Clinical Impression: Fall in (into) shower or empty bathtub, initial encounter, Right upper limb pain - Discharge Information *PRESCRIPTION DRUG MONITORING PROGRAM REVIEWED*: Not Applicable *COPY OF PRESCRIPTION DRUG MONITORING REPORT IN PATIENT SANIYA: Not Applicable Instructions: Musculoskeletal Pain Additional Instructions: - Ice affected area as needed - Alternate Tylenol and ibuprofen as needed for pain/discomfort - Activity as tolerated to RUE - Follow up with Dr. Logan if symptoms worsen or do not improve - Follow up with ortho as scheduled - My Orders Last 24 Hours: My Active Orders 11/25/18 22:40 Humerus Rt [CR] Stat - Assessment/Plan Last 24 Hours: My Active Orders 11/25/18 22:40 Humerus Rt [CR] Stat
== END 2018-11-25 23:20 | disposition home or self-care (01) ==
LOC: CC.ED 22:35
DX: M79.621 Pain in right upper arm (principal); E78.00 Pure hypercholesterolemia, unspecified; I10 Essential (primary) hypertension; J44.9 Chronic obstructive pulmonary disease, unspecified; K21.9 Gastro-esophageal reflux disease without esophagitis; Z88.5 Allergy status to narcotic agent; Z88.0 Allergy status to penicillin; Z91.09 Other allergy status, other than to drugs and biological substances; Z79.82 Long term (current) use of aspirin; Z79.899 Other long term (current) drug therapy; W18.2XXA Fall in (into) shower or empty bathtub, initial encounter
CPT/HCPCS: 73060-RT; 99283; 99283-25

== ENCOUNTER → 2022-04-28 | Day surgery (SDC) | payer MEDICARE, BC ==
[~2022-04-28] MED LIST changes: -Lactated Ringers 1,000 ML IV SCH; +Lidocaine 1% 30 ML SDV SUBCUT ONE; +Lidocaine 1% w/EPINEPHrine 100 ML, Sodium Chloride 0.9% 900 ML, Sodium Bicarbonate 10 MEQ INJECT ONE; -Propofol 200 MG/20 ML SDV IV ONE
[2022-04-28 15:35] VITALS: BP 124/83; PULSE 86
== END ==
LOC: CC.SDS 14:58
PROVIDERS: ATTEND Family Medicine
DX: I83.91 Asymptomatic varicose veins of right lower extremity (principal); I83.92 Asymptomatic varicose veins of left lower extremity; L97.909 Non-pressure chronic ulcer of unspecified part of unspecified lower leg with unspecified severity; N40.0 Benign prostatic hyperplasia without lower urinary tract symptoms; I25.10 Atherosclerotic heart disease of native coronary artery without angina pectoris; J44.9 Chronic obstructive pulmonary disease, unspecified; K21.9 Gastro-esophageal reflux disease without esophagitis; E78.5 Hyperlipidemia, unspecified; I10 Essential (primary) hypertension; E66.01 Morbid (severe) obesity due to excess calories; Z88.3 Allergy status to other anti-infective agents; Z88.0 Allergy status to penicillin; Z88.5 Allergy status to narcotic agent; Z79.899 Other long term (current) drug therapy; Z79.82 Long term (current) use of aspirin; Z98.890 Other specified postprocedural states; Z87.891 Personal history of nicotine dependence; Z68.43 Body mass index [BMI] 50.0-59.9, adult
CPT/HCPCS: A4216; J7030

== ENCOUNTER 2024-01-12 12:40 | Emergency (ER) | payer MEDICARE, BC ==
[2024-01-12] MEDS ORDERED: Lidocaine 2% with EPINEPHrine 1:100,000 20 ML MDV INJECT ONE (12:51)
[2024-01-12 13:04] VITALS: BP 164/89; PULSE 89
[2024-01-12] MEDS: Lidocaine 1% 5 ML VIAL INJECT ONE (13:07)
[2024-01-12] MEDS: Diphtheria,Pertussis(Acell),Tetanus Vaccine 0.5 ML Syringe IM ONE (13:08)
[2024-01-12] MEDS: Bacitracin/Neomycin/Polymyxin B Oint 0.9 GM U/D Packet TOP ONE (13:08)
[2024-01-12] MEDS: Take Home: Doxycycline 100 MG Cap, 4 Cap Pack PO ONE (13:22)
== END 2024-01-12 13:28 | disposition home or self-care (01) ==
LOC: CC.ED 12:40
DX: S51.811A Laceration without foreign body of right forearm, initial encounter (principal); I10 Essential (primary) hypertension; E78.00 Pure hypercholesterolemia, unspecified; J44.9 Chronic obstructive pulmonary disease, unspecified; K21.9 Gastro-esophageal reflux disease without esophagitis; Z95.5 Presence of coronary angioplasty implant and graft; Z87.891 Personal history of nicotine dependence; Z79.82 Long term (current) use of aspirin; Z79.899 Other long term (current) drug therapy; Z79.84 Long term (current) use of oral hypoglycemic drugs; Z88.8 Allergy status to other drugs, medicaments and biological substances; Z88.0 Allergy status to penicillin; Z88.1 Allergy status to other antibiotic agents; Z88.2 Allergy status to sulfonamides; Z91.048 Other nonmedicinal substance allergy status; Z23 Encounter for immunization; W26.0XXA Contact with knife, initial encounter
CPT/HCPCS: 12002; 90471; 90715; 99282-25; A9270-GY; J3490